=== PATIENT | male | born 1940 | race Caucasian/White ===

== ENCOUNTER → 2016-11-22 | Outpatient (CLI) | payer BC ==
[2016-11-22 13:29] LABS: BLOOD UREA NITROGEN 18 mg/dl (7-18); BUN/CREATININE RATIO 20.6 (10-20); CALCIUM 9.5 mg/dl (8.5-10.1); CARBON DIOXIDE 26 mmol/L (21-32); CHLORIDE 104 mmol/L (98-107); CREATININE 0.85 mg/dl (0.60-1.40); GLUCOSE 102 mg/dl (70-99); POTASSIUM 4.3 mmol/L (3.5-5.1); SODIUM 141 mmol/L (136-145)
[2016-11-22 14:56] LABS: HEMATOCRIT 34.2 % (42-52); MEAN CELL VOLUME 90.7 fL (80-100); MEAN CORPUSCULAR HEMOGLOBIN 29.2 pg (25-34); MEAN CORPUSCULAR HGB CONC 32.2 g/dl (32-36); MEAN PLATELET VOLUME 8.1 fL (7.4-10.4); PLATELET COUNT 256 K/uL (130-400); RED BLOOD COUNT 3.77 M/uL (4.7-6.1); WHITE BLOOD COUNT 9.35 K/uL (4.8-10.8)
[2016-11-22 14:59] LABS: BASO % 0.1 %; BASO ABS # 0.01 K/uL (0-0.2); COMPLETE YES; EOS % 1.1 %; IG% 1.5 %; LYMPH % 29.8 %; LYMPH ABS # 2.79 K/uL (1.2-3.4); MONO % 7.7 %; NEUT % 59.8 %
== END | disposition home or self-care (01) ==
LOC: C.LABMFLN 09:28
PROVIDERS: ATTEND Family Medicine
DX: C61 Malignant neoplasm of prostate (principal); K51.90 Ulcerative colitis, unspecified, without complications

== ENCOUNTER → 2017-03-21 | Outpatient (CLI) | payer BC ==
[2017-03-21 12:51] LABS: BASO % 0.3 %; BASO ABS # 0.02 K/uL (0-0.2); COMPLETE YES; EOS % 3.4 %; HEMATOCRIT 40.3 % (42-52); IG% 0.1 %; LYMPH % 41.1 %; LYMPH ABS # 2.81 K/uL (1.2-3.4); MEAN CELL VOLUME 91.4 fL (80-100); MEAN CORPUSCULAR HEMOGLOBIN 30.2 pg (25-34); MEAN PLATELET VOLUME 8.5 fL (7.4-10.4); MONO % 9.1 %; PLATELET COUNT 188 K/uL (130-400); RED BLOOD COUNT 4.41 M/uL (4.7-6.1); WHITE BLOOD COUNT 6.84 K/uL (4.8-10.8)
[2017-03-21 13:20] LABS: BLOOD UREA NITROGEN 23 mg/dl (7-18); BUN/CREATININE RATIO 24.9 (10-20); CARBON DIOXIDE 29 mmol/L (21-32); CHLORIDE 110 mmol/L (98-107); CREATININE 0.94 mg/dl (0.60-1.40); GLUCOSE 97 mg/dl (70-99); POTASSIUM 4.5 mmol/L (3.5-5.1); SODIUM 143 mmol/L (136-145)
[2017-03-21 13:26] LABS: CHOLESTEROL 161 mg/dl (0-200); HDL CHOLESTEROL 53 mg/dl; LDL CHOLESTEROL CALCULATED 100 mg/dl; TOTAL IRON BINDING CAPACITY 370 mcg/dl (250-450); TRIGLYCERIDES 39 mg/dl (0-150); VERY LOW DENSITY LIPOPROT CALC 8 mg/dl
[2017-03-21 13:33] LABS: ESTIMATED AVERAGE GLUCOSE 111 mg/dl; HA1C FLAG Normal (Normal)
--- NOTE | 2017-03-27 09:55 | CODING QUERY MEDICAL NECESSITY ---
SUPPORTING DIAGNOSIS NEEDED Dr. Hernandez, A supporting diagnosis is required for the test/procedure performed on this patient in order for us to be reimbursed by the patient's insurance. Please provide a supporting diagnosis for the following test/procedure listed below next to the test name along with your signature. *If there is no additional diagnosis for this patient that would support the following test/procedure please document that below next to the test/procedure. Test(s)/Procedure(s) that require a supporting diagnosis: * [id number] GLYCATED HEMOGLOBIN DIAGNOSIS: DATE OF SERVICE: 03/21/17 Provider Signature: Date: Thank you [facility] Information Management Once completed, please kindly fax back to [phone] For questions please call [phone]
== END | disposition home or self-care (01) ==
LOC: C.LABMFLN 09:07
PROVIDERS: ATTEND Family Medicine
DX: D64.9 Anemia, unspecified (principal); E78.5 Hyperlipidemia, unspecified; K51.90 Ulcerative colitis, unspecified, without complications; R73.03 Prediabetes; C61 Malignant neoplasm of prostate

== ENCOUNTER → 2017-07-28 | Outpatient (CLI) | payer BC | END | disposition home or self-care (01) | LOC: C.LABMFLN 09:15 | PROVIDERS: ATTEND Internal Medicine Gastroenterology | DX: K51.90 Ulcerative colitis, unspecified, without complications (principal); C61 Malignant neoplasm of prostate ==

== ENCOUNTER → 2018-03-12 | Outpatient (CLI) | payer BC ==
[2018-03-12 13:00] LABS: HEMATOCRIT 29.3 % (42-52); HEMOGLOBIN 8.8 g/dL (14.0-18.0)
[2018-03-12 13:39] LABS: TRANSFERRIN 346 mg/dl (200-360)
== END | disposition home or self-care (01) ==
LOC: C.LABMFLN 09:21
PROVIDERS: ATTEND Family Medicine
DX: D50.9 Iron deficiency anemia, unspecified (principal)

== ENCOUNTER → 2018-03-14 | Outpatient (CLI) | payer BC | END | disposition home or self-care (01) | LOC: C.LABMFLN 14:29 | PROVIDERS: ATTEND Family Medicine | DX: D50.9 Iron deficiency anemia, unspecified (principal) ==